=== PATIENT | female | born 2000 | race Caucasian/White ===

== ENCOUNTER 2022-08-31 19:41 | Emergency (ER) | payer OTHER ==
[~2022-08-31] VITALS: Ht 160 cm; Wt 63.5 kg
[~2022-08-31 19:41] MED LIST: ACHD5005 PO; CEPH500T PO; ONDA4TAB11 PO
[2022-08-31 19:45] VITALS: BP 132/80
--- NOTE | 2022-08-31 20:06 | ED Integumentary General ---
General Chief Complaint: Skin/Wound Problems Stated Complaint: HIVES EVERYWHERE,THROAT PAIN Nursing Triage Note: PT AMB [facility] C/O HIVES THAT BEGAN YESTERDAY AND THROAT PAIN X1 HR. PT WENT TO [facility] TODAY, WAS PRESCRIBED A STEROID. PT A&OX4. Source: patient History of Present Illness Date Seen by Provider: Aug 31, 2022 Time Seen by Provider: 19:46 Initial Comments 21-year-old female presenting with complaints of hives since yesterday. She also has been having some burning pain with urination and after a telehealth visit was prescribed Macrobid. However the hives had started before starting any of the antibiotic. She denies any other new medications, soaps, close but had used a different dryer sheet. However she had really washed all of her clothing and was still having the hives. She had gone to urgent care today and they had prescribed a steroid but she did not pick it up from the pharmacy. After getting home from the urgent care visit she started having a sore throat. She came to the emergency department today because she was concerned about the sore throat in addition to the hives. She denies any wheezing or shortness of breath and is not having any difficulty with swallowing. She denies any known ill contacts. Timing/Duration: this afternoon (Sore throat started this afternoon and hives started yesterday) Severity: moderate Location: generalized Possible Cause: no cause identified Modifying Factors: improves with antihistamine (slight improvement after benadryl) Associated Symptoms: No blisters, No change in skin texture, No edema, No fever, No flushing, No headache; hives; No jaundice, No malaise, No nasal congestion, No numbness, No pallor, No paresthesia, No petechiae; sore throat; No swelling/mass/lumps, No tingling Allergies and Home Medications Allergies Coded Allergies: Sulfa (Sulfonamide Antibiotics) (Verified Allergy, Unknown, 08/31/22) azithromycin (Verified Allergy, Unknown, 08/31/22) Patient Home Medication List Home Medication List Reviewed: Yes Review of Systems Review of Systems Constitutional: No chills, No fever EENTM: see HPI Respiratory: No cough, No short of breath Cardiovascular: no symptoms reported Gastrointestinal: No nausea, No vomiting Genitourinary: dysuria Musculoskeletal: no symptoms reported Skin: see HPI, rash (diffuse hives) Psychiatric/Neurological: No Symptoms Reported Past Oxuzqhb-Tsjwdw-Uxincg Hx Patient Social History Tobacco Use?: No Use of E-Cig and/or Vaping dev: No Substance use?: No Alcohol Use?: No Past Medical History Last Menstrual Period: Aug 19, 2022 Physical Exam Vital Signs Vital Signs - First Documented 08/31/22 19:45 Temp 37.3 Pulse 97 Resp 18 B/P (MAP) 132/80 (97) Pulse Ox 100 O2 Delivery Room Air Capillary Refill : Less Than 3 Seconds General Appearance: WD/WN, no apparent distress HEENT: PERRL/EOMI; No photophobia; pharyngeal erythema; No tonsillar exudate Neck: non-tender, full range of motion, supple Cardiovascular: normal peripheral pulses, regular rate, rhythm Respiratory: chest non-tender, lungs clear, normal breath sounds, no respiratory distress, no accessory muscle use Gastrointestinal: normal bowel sounds, soft, no pulsatile mass Extremities: normal range of motion, non-tender, no pedal edema, normal capillary refill Neurologic/Psychiatric: alert, oriented x 3 Skin: warm/dry, rash (generalized hives) Progress/Results/Core Measures Results/Orders Lab Results Laboratory Tests Test 08/31/22 20:07 Range/Units Group A Streptococcus Screen NEGATIVE NEGATIVE My Orders Orders - JOSE D CLAY MD Dexamethasone Injection (Decadron Inje (08/31/22 19:57) Rapid Strep A Screen (08/31/22 19:57) Throat Culture Strep A Confirm (08/31/22 20:07) Vital Signs/I&O 08/31/22 19:45 Temp 37.3 Pulse 97 Resp 18 B/P (MAP) 132/80 (97) Pulse Ox 100 O2 Delivery Room Air Blood Pressure Mean: 97 Progress Progress Note #1: Progress Note Patient does not have any wheezing, stridor, difficulty swallowing. Will obtain a rapid strep swab to check for strep throat since she was having pain and hives. Since she has not picked up the prednisone prescription from the pharmacy will administer Decadron 10 mg IM x1. She plans to start the steroid in am after picking it up from the pharmacy. Progress Note #2: Progress Note Rapid strep test was negative so culture was reflexed. Advised the patient of the results and that if the culture is positive she will get notified in 2 to 3 days when that comes back. Encourage fluids and hydration. May continue to take Benadryl up to 50 mg every 4 hours as needed for itching and rash. Consider an oatmeal bath or some topical steroid for the small areas that seem to be worse in her hives. The steroid shot from tonight should start kicking in to try and help in addition to taking the prednisone during the day tomorrow. Departure Impression Primary Impression: Hives Additional Impression: Sore throat Disposition: 01 HOME, SELF-CARE Condition: Stable Departure-Patient Inst. Decision time for Depature: 20:31 Referrals: HANNAH REES MD (PCP/Family) Primary Care Physician Patient Instructions: Sore Throat, Adult ED, Allergic Reaction ED, Hives (DC) Add. Discharge Instructions: Start the steroid in the morning after you pick them up from the pharmacy. Stay well hydrated and drink plenty of fluids. Check back with clinic for continued concerns/problems. Your sore throat may be related to allergies and whatever is causing the hives but there are no signs of your airway closing off or causing wheezing or problems with your lungs. If the culture on your throat swab comes back and shows you do have strep throat then you will get a call so you could take an antibiotic for Strep throat. All discharge instructions reviewed with patient and/or family. Voiced understanding. JOSE D CLAY MD Aug 31, 2022 20:05
== END 2022-08-31 20:35 | disposition home or self-care (01) ==
LOC: ER FS 19:44
DX: L50.9 Urticaria, unspecified (principal); J02.9 Acute pharyngitis, unspecified
CPT/HCPCS: 87430; 99284